=== PATIENT | male | born 1985 | race Caucasian/White ===

== ENCOUNTER 2020-08-31 11:38 | Outpatient (REF) | payer SELFPAY | END 2020-08-31 11:39 | disposition home or self-care (01) | LOC: HO.BBR 11:38 | PROVIDERS: Visit Provider Internal Medicine Hematology & Oncology | DX: Z13.89 Encounter for screening for other disorder (principal) ==

== ENCOUNTER 2020-09-13 11:57 | Outpatient (REF) | payer SELFPAY | END 2020-09-13 11:58 | disposition home or self-care (01) | LOC: HO.BBR 11:57 | PROVIDERS: Visit Provider Internal Medicine Hematology & Oncology | DX: Z13.89 Encounter for screening for other disorder (principal) ==

== ENCOUNTER 2020-12-06 13:45 | Outpatient (REF) | payer SELFPAY | END 2020-12-06 13:46 | disposition home or self-care (01) | LOC: HO.BBR 13:45 | PROVIDERS: Visit Provider Internal Medicine Hematology & Oncology | DX: Z13.89 Encounter for screening for other disorder (principal) ==

== ENCOUNTER 2022-07-23 13:58 | Outpatient (REF) | payer OTHER, SELFPAY | END 2022-07-23 13:59 | disposition home or self-care (01) | LOC: HO.BBR 13:58 | PROVIDERS: Visit Provider Hospitalist | DX: Z13.89 Encounter for screening for other disorder (principal) ==

== ENCOUNTER 2022-10-30 09:42 | Outpatient (REF) | payer OTHER, SELFPAY | END 2022-10-30 09:43 | disposition home or self-care (01) | LOC: HO.BBR 09:42 | PROVIDERS: Visit Provider Hospitalist | DX: Z13.89 Encounter for screening for other disorder (principal) ==

== ENCOUNTER 2023-01-28 07:55 | Outpatient (REF) | payer OTHER, SELFPAY | END 2023-01-28 07:56 | disposition home or self-care (01) | LOC: HO.BBR 07:55 | PROVIDERS: Visit Provider Hospitalist | DX: Z13.89 Encounter for screening for other disorder (principal) ==

== ENCOUNTER 2023-04-30 09:57 | Outpatient (REF) | payer OTHER, SELFPAY | END 2023-04-30 09:58 | disposition home or self-care (01) | LOC: HO.BBR 09:57 | PROVIDERS: Visit Provider Hospitalist | DX: Z13.89 Encounter for screening for other disorder (principal) ==

== ENCOUNTER 2023-08-02 13:41 | Outpatient (REF) | payer OTHER, SELFPAY | END 2023-08-02 13:42 | disposition home or self-care (01) | LOC: HO.BBR 13:41 | PROVIDERS: Visit Provider Hospitalist | DX: Z13.89 Encounter for screening for other disorder (principal) ==

== ENCOUNTER 2023-10-29 13:57 | Outpatient (REF) | payer OTHER, SELFPAY | END 2023-10-29 13:58 | disposition home or self-care (01) | LOC: HO.BBR 13:57 | PROVIDERS: Visit Provider Hospitalist | DX: Z13.89 Encounter for screening for other disorder (principal) ==

== ENCOUNTER 2024-01-27 14:12 | Outpatient (REF) | payer OTHER, SELFPAY | END 2024-01-27 14:13 | disposition home or self-care (01) | LOC: HO.BBR 14:12 | PROVIDERS: Visit Provider Hospitalist | DX: Z13.89 Encounter for screening for other disorder (principal) ==

== ENCOUNTER 2024-08-04 08:07 | Outpatient (REF) | payer OTHER, SELFPAY | END 2024-08-04 08:08 | disposition home or self-care (01) | LOC: HO.BBR 08:07 | PROVIDERS: Visit Provider Hospitalist | DX: Z13.89 Encounter for screening for other disorder (principal) ==

== ENCOUNTER 2025-02-01 08:02 | Outpatient (REF) | payer BC, SELFPAY ==
--- OUTSIDE RECORDS SUMMARY | 2025-02-01 08:05 | XMS_ITS ---
Author Name [facility] Organization Unknown History of Medication Use Medication Directions Dispensed Refills Start Date End Date Stat us atorvastatin (LIPITOR) 40 MG tablet every evening. 10/24/2022 active aspirin enteric coated (ECOTRIN LOW STRENGTH) 81 MG EC tablet Take 1 tablet (81 mg total) by mouth daily. active Encounters Encounter Type Encounter Reason Primary Diagnosis Location Date Ambulatory Phimosis [facility] 12/19/2022 Ambulatory Encounter for ot her preprocedural examination [facility] 12/13/2022 Ambulatory Encounter for ot her general counseling and advice on contraception [facility] 11/20/2022 Care Team Organization Name Specialty Phone Email Start Date End [place] [facility] Primary [facility] 12/19/2022 12/19/2022 [facility] NO PCP Primary Care 11/20/2022 11/20/2022 [facility] P[facility],No Primary Care 11/20/2022
--- OUTSIDE RECORDS SUMMARY | 2025-02-01 08:05 | XMS_ITS | Clinical Summary ---
Author Organization [facility] Address [address] [place] [address] Care Team Providers Care Group Fitness Instructor Name Role Phone Jazmyne Hutson DO Primary Care Pro vider Allergies No known active allergies Medications atorvastatin (LIPITOR) 40 MG tablet Take 1 tablet (40 mg total) by mouth every morning. 10/24/2022 Active metoPROLOL SUCCINATE (TOPROL-XL) 100 MG 24 hr tablet Take 1 tablet (100 mg total) by mouth daily. 10/24/2022 Active aspirin enteric coated (ECOTRIN LOW STRENGTH) 81 MG EC tablet Take 1 tablet (81 mg total) by mouth daily. Active Active Problems No known active problems Family History Medical History Relation Name Comments No Known Problems Father No Known Problems Mother Relation Name Status Comments Father Alive Mother Alive Social History Tobacco Use Types Packs/Day Years Used Date Smoking Tobacco: Never Smokeless Tobacco: Never Tobacco Cessation:Counseling Given: Not Answered Alcohol Use Standard Drinks/Week Comments Yes 7 (1 standard drink = 0.6 oz pur e alcohol) AUDIT-C Answer Date Recorded Q1: How often do you have a drink containing alcohol? 4 or more times a week 11/23/2022 Q2: How many drinks containi ng alcohol do you have on a typical day when you are drinking? 1 or 2 Q3: How often do you have si x or more drinks on one occasion? Monthly 11/23/2022 Sex and Gender Information Value Date Recorded Sex Assigned at Male 11/21/2022 9:04 AM EST Legal Sex Male 10:48 AM EDT Gender Identity Male 11/21/2022 9:04 AM EST Sexual Orientation Heterosexual (straight) 11/21 9:04 AM EST Last Filed Vital Signs Vital Sign Reading Time Taken Comments Blood Pressure 135/70 12/19/2022 9:15 AM EDT Pulse 70 12/19/2022 9:15 AM EDT Temperature 36 ??C (96.8 ??F) 12/19/2022 9:15 AM EDT Respiratory Rate 12 12/19/2022 9:15 AM EDT Oxygen Saturation 98% 12/19/2022 9:15 AM EDT Inhaled Oxygen Concentration - - Weight 106 kg (233 lb 8 oz) 12/13/2022 11:04 AM EDT Height 177.8 cm (5' 10 ) 12/13/2022 11:04 AM EDT Body Mass Index 33.5 12/13/2022 11:04 AM EDT Plan of Treatment Health Maintenance Due Date Last Done Comments Hepatitis C Virus Screening 1985 HIV Screening 1998 DTaP/Tdap/Td Vaccines (1 - Tdap) 2004 Hepatitis B Vaccines (1 of 3 - 19+ 3-dose series) 2004 COVID-19 Vaccine (2023-2 5 season) 2024 01/23/2021, 01/02/2021 Influenza Vaccine 04/16/2025 06/12/2018 HPV Vaccines Aged Out No longer eligi ble based on patient's age to complete this topic Pneumococcal Vaccine: Pediatric (0-5 Years) and At-Risk Patients (6 to 49 Years) Aged Out No longer eligible b ased on patient's age to complete this topic Insurance Advance Directives * Full Code (Latest Code Status on File) Date Activated Date Inactivated Comments 12/19/2022 7:11 AM Care Teams Group Fitness Instructor Relationship Specialty Start Date End Date Jazmyne Hutson DO [address] [place] [address] PCP - General Internal Medicine 12/19/22
--- OUTSIDE RECORDS SUMMARY | 2025-02-01 08:05 | XMS_ITS | Clinical Summary ---
Author Organization Patient Business Ser [facility] Address [address] [place] [address] Care Team Providers Care Homebound Teacher Name Role Phone Emily Mora NP Primary Care Provider [phone] Allergies No known active allergies Medications aspirin 81 mg chewable tablet 81 mg daily. 11/04/2018 Active atorvastatin (LIPITOR) 40 mg tablet Take 1 tablet (40 mg total) by mouth 1 (one) time each day. 90 tablet 1 07/29/2024 Active metoprolol succinate (TOPROL-XL) 100 mg 24 hr tablet TAKE 1 TABLET BY MOUTH EVERY DAY 90 tablet 1 11/18/2024 Active Active Problems Problem Noted Date Diagnosed Date Hereditary hemochromatosis (CMS/HCC V24) 025 Abnormal echocardiogram 06/05/2024 Overview (07/24/2024): Last Assessment & Plan: Patient's last echocardiogram was done in September 2022 showing an EF of 45 to 50% with grade 1 diastolic dysfunction. In comparison to his last echo the EF appears to be lower however Definity was used on the study and was on the last, wall motion abnormality remained the same. Will update an echo to identify if the patient does have a reduced reduction in his ejection fraction. Heart attack (CMS/HCC V24, CMS/HCC V28) 09/11/20 Paroxysmal atrial tachycardia (CMS/HCC V24) 08/17 Pure hypercholesterolemia 09/11/2022 Hyperlipidemia 02/17/2021 Overview (07/24/2024): Last Assessment & Plan: Last lipid panel was completed January 2023 showing an LDL of 69 which is within his goal of LDL less than 70. Will update a lipid panel to ensure he is still within goal. Continue on atorvastatin daily. PVC's (premature ventricular contractions) 02/17 Overview (07/24/2024): Last Assessment & Plan: His EKG does show a PVC. He does not have any further PVCs on examination. We will be updating his echocardiogram and this will tell us if there is any structural abnormalities related to this. He is unaware of any PVCs. He cannot feel any palpitations. Essential hypertension 02/17/2021 Overview (07/24/2024): Last Assessment & Plan: Patient's blood pressure is well-controlled with a reading of 118/78, continue with metoprolol XL [address] elevation myocardia l infarction (STEMI) due to occlusion of circumflex coronary artery (CMS/HCC V24, CMS/HCC V28) 02/17/2021 Coronary artery disease invo lving [place] coronary artery of [place] heart without angina pectoris 02/17/2021 Overview (07/24/2024): Last Assessment & Plan: Has history of STEMI with stenting of his left circumflex artery in 2019. He has been doing well since, no exertional symptoms. He continues on cardioprotective medications with a statin, beta-say and aspirin daily. Blood pressure is well-controlled, he is active and following a low-fat diet. He is aware to notify the office if he develops any new symptoms. History of ST elevation myocardial infarction (S ALYSSA) 10/23/2018 Encounters Date Type Department Care Team Description 12/01/2024 4:00 PM EDT Office Visit [facility] [address] [place] [address] Emily Mora NP Adult general medical examination (Primary Dx); Essential hypertension; Coronary artery disease involving [place] coronary artery of [place] heart without angina pectoris; Hereditary hemochromatosis (CMS/HCC V24); Screening for deficiency anemia; Screening for metabolic disorder; Encounter for lipid screening for cardiovascular disease from Last 3 Months Surgical History Surgery Date Site/Laterality Comments HAND SURGERY Right PROCEDURE: [place] UNLISTED PROCEDURE HANDS/FINGERS; COMMENT: pin placed in Thumb age 12 CARDIAC CATHETERIZATION 10/23/2017 PROCEDURE: HISTORICAL CARDIAC CATH ANKLE SURGERY 10/2020 PROCEDURE: HISTORICAL ANKLE SURGERY; COMMENT: Broken ankle w/ plate/screws VASECTOMY 09/16/2023 - 09/15/2024 Medical History Medical History Date Comments Hemochromatosis 03/2004 DX:Hemochromatos is Metacarpal bone fracture DX:[place] carpal bone fracture Skin lesion of face 09/11/2022 DX:Skin lesi on of face Macrocytosis without anemia DX:M acrocytosis without anemia Family History Medical History Relation Name Comments Prostate cancer Paternal Grandfather Skin cancer Paternal Grandmother Relation Name Status Comments Paternal Grandfather Paternal Grandmother Social History Tobacco Use Types Packs/Day Years Used Date Smoking Tobacco: Never Smokeless Tobacco: Never Alcohol Use Standard Drinks/Week Comments Yes 10 (1 standard drink = 0.6 oz pu re alcohol) Housing Instability Answer Date Recorde d Are you worried that in the next 2 months you may not have stable housing? No 12/01/2024 Food Access & Nutrition Answer Date Rec orded Do you have access to a vari ety of food including fruits and vegetables? Yes 12/01/2024 Access to Healthcare Answer Date Record ed Within the last 3 months, ho w many times did you visit the emergency department for your medical care? 0 12/01/2024 Health Literacy Answer Date Recorded How often do you need to hav e someone help you when you read instructions, pamphlets, or other written material from your doctor or pharmacy? Never 12/01/2024 Caregiver: How often do you need to have someone help you when you read instructions, pamphlets, or other written material from your doctor or pharmacy? Not on file 12/01/2024 Financial Risk Answer Date Recorded How hard is it for you to pa y for the very basics like food, housing, medical care, and air conditioning / heating? Not very hard 12/01/2024 Transportation Answer Date Recorded Has the lack of transportati on kept you from meetings, work, or from getting things needed for daily living? No Has the lack of transportati on kept you from medical appointments or from getting medications? No 12/01/2024 Social Isolation Answer Date Recorded How often do you feel lonely or isolated from th ose around you? Never 12/01/2024 Food Risk Answer Date Recorded Within the past 12 months we worried whether our food would run out before we got money to buy more. Never true 12/01/2024 Within the past 12 months th e food we bought just didn't last and we didn't have money to get more. Never true 12/01/2024 Dependent Care Answer Date Recorded Do you need help finding or paying for care for your loved ones. For example, director maternal child or elderly care for an older adult? No 12/01/2024 Education Answer Date Recorded Do you think completing more education or training, like finishing a GED, going to college, or learning a trade, would be helpful for you? N/A 12/01/2024 Employment and Income Answer Date Recor ded During the last four weeks, have you been actively looking for work? No 12/01/2024 Living Situation Answer Date Recorded What is your living situation? 0 12/01/2024 Sex and Gender Information Value Date Recorded Sex Assigned at Not on file Legal Sex Male 12:28 PM EDT Gender Identity Not on file Sexual Orientation Not on file Obstetrics History Last Filed Vital Signs Vital Sign Reading Time Taken Comments Blood Pressure 110/72 12/01/2024 4:07 PM EDT Pulse 64 12/01/2024 3:56 PM EDT Temperature - - Respiratory Rate - - Oxygen Saturation - - Inhaled Oxygen Concentration - - Weight 104 kg (229 lb 9.6 oz) 12/01/2024 3:56 PM EDT Height 175.3 cm (5' 9 ) 12/01/2024 3:56 PM EDT Body Mass Index 33.91 12/01/2024 3:56 PM EDT Plan of Treatment Upcoming Encounters Date Type Department Care Team (Late st Contact Info) Description 12/07/2025 9:00 AM EDT Office Visit [facility] [address] [facility] [place] [place] [address] Emily Mora NP [address] [facility] [place] [address] Health Maintenance Due Date Last Done Comments DTaP,Tdap,and Td Vaccines (1 - Tdap) 12/01/2025 Postponed from 2004 (Patient Refused) Depression Screening 12/01/2025 12/01/2024 Hypertension/CHF/CAD Annual BMP Blood Test 12/01/2025 12/01/2024, 12/13/2022, 12/13/2022 Social Influencers of Health Screening 12/01/2025 12/01/2024 Cholesterol Screening (Lipid Panel) 12/01/2029 12/01/2024 COVID-19 Vaccine Discontinued 09/20/2021 HIB Vaccines Aged Out No longer eligi ble based on patient's age to complete this topic HIV Screening Discontinued HPV Vaccines Aged Out No longer eligi ble based on patient's age to complete this topic Hepatitis A Vaccines Aged Out No long er eligible based on patient's age to complete this topic Hepatitis B Vaccines Discontinued Hepatitis C Screening Discontinued IPV Vaccines Aged Out No longer eligi ble based on patient's age to complete this topic Influenza Vaccine Discontinued MMR Vaccines Aged Out No longer eligi ble based on patient's age to complete this topic Meningococcal ACWY Vaccine Aged Out N o longer eligible based on patient's age to complete this topic Meningococcal B Vaccine Aged Out No l onger eligible based on patient's age to complete this topic Pneumococcal Vaccine: Pediatrics (0 to 5 Years) and At-Risk Patients (6 to 64 Years) Aged Out No longer eligible b ased on patient's age to complete this topic RSV Immunization Patients Under 20 months Aged Out No longer eligible b ased on patient's age to complete this topic Varicella Vaccines Aged Out No longer eligible based on patient's age to complete this topic Procedures Procedure Name Priority Date/Time Associated Diagnosis Comments COMPLETE BLOOD COUNT Routine 12/01/2024 4:40 PM EDT Screening for deficiency anemia COMPREHENSIVE METABOLIC PANEL Routine 12/01/2024 4:40 PM EDT Screening for metabolic disorder LIPID PANEL WITH REFLEX TO DIRECT LDL Routine 12/01/2024 4:40 PM EDT Screening for metabolic disorder Encounter for lipid screening for cardiovascular disease IRON AND TIBC Routine 12/01/2024 4:40 PM EDT Hereditary hemochromatosis (CMS/HCC V24) FERRITIN Routine 12/01/2024 4:40 PM EDT Hereditary hemochromatosis (CMS/HCC V24) from Last 3 Months Results * (ABNORMAL) Lipid panel with reflex to direct LDL (12/01/2024 4:40 PM EDT) Cholesterol 164 0 - 200 mg/dL LAB CHEMISTRY METHOD 12/01/2024 6:55 PM EDT [facility] Triglycerides 223(H) 0 - 150 mg/dL LAB CHEMISTRY METHOD 12/01/2024 6:55 PM EDT [facility] HDL 47 >=40 mg/dL LAB CHEMISTRY METHOD 12/01/2024 6:55 PM EDT [facility] LDL Calculated 72 0 - 100 mg/dL LAB CHEMISTRY METHOD 12/01/2024 6:55 PM EDT [facility] VLDL Cholesterol Maximilian 44.6 mg/dL LAB CHEMISTRY METHOD 12/01/2024 6:55 PM EDT [facility] Non HDL Chol. (LDL+VLDL) 117 <145 mg/dL LAB CHEMISTRY METHOD 12/01/2024 6:55 PM EDT [facility] Chol/HDL Ratio 3.5 0.0 - 4.4 LAB CHEMISTRY METHOD 12/01/2024 6:55 PM EDT [facility] Blood Venous blood specimen / Unknown Venipuncture / Unknown 12/01/2024 4:40 PM EDT 12/01/2024 4:40 PM EDT us Emily oMra NP LAB BLOOD ORDERABLES Final Resu lt [facility] [address] [place] [address], * (ABNORMAL) Iron and TIBC (12/01/2024 4:40 PM EDT) Iron 177(H) 50 - 160 mcg/dL LAB CHEMISTRY METHOD 12/01/2024 6:55 PM EDT [facility] TIBC 290 250 - 450 mcg/dL LAB CHEMISTRY METHOD 12/01/2024 6:55 PM EDT [facility] Iron Saturation 61(H) 20 - 50 % LAB CHEMISTRY METHOD 12/01/2024 6:55 PM EDT [facility] Blood Venous blood specimen / Unknown Venipuncture / Unknown 12/01/2024 4:40 PM EDT 12/01/2024 4:40 PM EDT Emily Mora NP LAB BLOOD ORDERABLES Final Resu lt [facility] [address] [place] [address], * (ABNORMAL) Complete blood count (12/01/2024 4:40 PM EDT) [facility] WBC 8.3 4.8 - 10.8 K/mcL LAB HEMETOLOGY METHOD 12/01/2024 6:29 PM EDT [facility] RBC 4.90 4.50 - 5.50 M/mcL LAB HEMETOLOGY METHOD 12/01/2024 6:29 PM EDT [facility] Hemoglobin 16.3 13.5 - 17.5 g/dL LAB HEMETOLOGY METHOD 12/01/2024 6:29 PM EDT [facility] Hematocrit 47.6 42.0 - 54.0 % LAB HEMETOLOGY METHOD 12/01/2024 6:29 PM EDT [facility] MCV 97.3 79.0 - 98.0 FL LAB HEMETOLOGY METHOD 12/01/2024 6:29 PM EDT [facility] MCH 33.3(H) 27.0 - 32.0 pcg LAB HEMETOLOGY METHOD 12/01/2024 6:29 PM EDT [facility] MCHC 34.2 32.0 - 37.0 g/dL LAB HEMETOLOGY METHOD 12/01/2024 6:29 PM EDT [facility] RDW 11.9 11.0 - 15.0 % LAB HEMETOLOGY METHOD 12/01/2024 6:29 PM EDT [facility] Platelets 259 130 - 400 K/mcL LAB HEMETOLOGY METHOD 12/01/2024 6:29 PM EDT [facility] MPV 10.3 7.0 - 11.0 FL LAB HEMETOLOGY METHOD 12/01/2024 6:29 PM EDT [facility] NRBC 0.0 <1.0 % LAB HEMETOLOGY METHOD 12/01/2024 6:29 PM EDT [facility] NRBC Absolute 0.00 <0.10 K/mcL LAB HEMETOLOGY METHOD 12/01/2024 6:29 PM EDT [facility] Blood Venous blood specimen / Unknown Venipuncture / Unknown 12/01/2024 4:40 PM EDT 12/01/2024 4:40 PM EDT us Emily Mora HOTEL GUEST SERVICE AGENT LAB BLOOD ORDERABLES Final Resu lt [facility] [address] [place] [address], * Ferritin (12/01/2024 4:40 PM EDT) Ferritin 67 26 - 388 ng/mL LAB CHEMISTRY METHOD 12/01/2024 6:55 PM EDT [facility] Blood Venous blood specimen / Unknown Venipuncture / Unknown 12/01/2024 4:40 PM EDT 12/01/2024 4:40 PM EDT us Emily Mora NP LAB BLOOD ORDERABLES Final Resu lt [facility] [address] [place] [address], * (ABNORMAL) Comprehensive metabolic panel (12/01/2024 4:40 PM EDT) Sodium 137 133 - 145 mmol/L LAB CHEMISTRY METHOD 12/01/2024 6:55 PM EDT [facility] Potassium 4.1 3.5 - 5.5 mmol/L LAB CHEMISTRY METHOD 12/01/2024 6:55 PM T [facility] Chloride 102 96 - 110 mmol/L LAB CHEMISTRY METHOD 12/01/2024 6:55 PM [facility] CO2 26 21 - 32 mmol/L LAB CHEMISTRY METHOD 12/01/2024 6:55 PM [facility] Anion Gap 9 3 - 11 LAB CHEMISTRY METHOD 12/01/2024 6:55 PM [facility] Glucose 99 70 - 100 mg/dL LAB CHEMISTRY METHOD 12/01/2024 6:55 PM [facility] BUN 17 5 - 25 mg/dL LAB CHEMISTRY METHOD 12/01/2024 6:55 PM [facility] Creatinine 1.09 0.70 - 1.30 mg/dL LAB CHEMISTRY METHOD 12/01/2024 6:55 PM EDT [facility] eGFR 89 >=60 mL/min/1. 73m2 LAB CHEMISTRY METHOD 12/01/2024 6:55 PM [facility] Comment:Calculation based on the??Chronic Kidney Disease Epidemiology Collaboration (CKD-EPI) equation refit??without adjustment for race. BUN/Creatinine Ratio 15.6 LAB CHEMISTRY METHOD 12/01/2024 6:55 PM [facility] Calcium 9.5 8.5 - 10.5 mg/dL LAB CHEMISTRY METHOD 12/01/2024 6:55 PM EDT [facility] AST (SGOT) 38 10 - 42 unit/L LAB CHEMISTRY METHOD 12/01/2024 6:55 PM EDT [facility] ALT (SGPT) 83(H) 10 - 60 unit/L LAB CHEMISTRY METHOD 12/01/2024 6:55 PM EDT [facility] Alkaline Phosphatase 98 42 - 121 unit/L LAB CHEMISTRY METHOD 12/01/2024 6:55 PM EDT [facility] Total Protein 7.4 6.0 - 8.0 g/dL LAB CHEMISTRY METHOD 12/01/2024 6:55 PM EDT [facility] Albumin 3.9 3.2 - 5.0 g/dL LAB CHEMISTRY METHOD 12/01/2024 6:55 PM EDT [facility] Total Bilirubin 0.8 0.0 - 1.4 mg/dL LAB CHEMISTRY METHOD 12/01/2024 6:55 PM EDT [facility] Blood Venous blood specimen / Unknown Venipuncture / Unknown 12/01/2024 4:40 PM EDT 12/01/2024 4:40 PM EDT us Emily Mora HOTEL GUEST SERVICE AGENT LAB BLOOD ORDERABLES Final Resu lt [facility] [address] [place] [address], from Last 3 Months Insurance [facility] Care Teams Homebound Teacher Relationship Specialty Start Date End Date Emily Mora NP [address] [facility] [place] [address] PCP - General 04/06/24
--- OUTSIDE RECORDS SUMMARY | 2025-02-01 08:05 | XMS_ITS | Encounter Summary ---
Author Organization [facility] Address [address] [place] [address] Care Team Providers Care Metal Solderer Name Role Phone Pcp, No Primary Care Provider Jazmyne Sanchez DO Primary Care Pro vider Reason for Visit * Reason Comments Appointment Encounter Details Date Type Department Care Team (Late st Contact Info) Description 12/18/2022 Telephone [facility] Urologic Surgery [address] [address] Ariel Funes MD [address] [place] [id number] Appointment Social History Tobacco Use Types Packs/Day Years Used Date Smoking Tobacco: Never Smokeless Tobacco: Never Alcohol Use Standard Drinks/Week Comments Yes 7 [...] Orientation Heterosexual (straight) 11/21 9:04 AM EST COVID-19 Exposure Response Date Recorded In the last 10 days, have yo u been in contact with someone who was confirmed or suspected to have Coronavirus/COVID-19? 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 Put him on hold and spoke with Marcelino Khalil to ask if there was anything missing for clearance tomorrow. Marcelino states that the pre-op testing facility cleared him and that he doesn't need cardiac clearance at his age. Advised that he has had an MD in the past and does need clearance per pre-op testing's note. Transferred the patient to speak withDelbertan. TRAVIS updated. Brittany Farias LPN 12/18/2022 2:52 PM * Telephone Encounter - Brittany Farias LPN - 12/18/2022 2:17 PM EDT Spoke with patient- he states that he did not call and does not know who Monica is. He states thathe is walking into his guest relations manager's office now and will call us if needed after his appt. Brittany Farias LPN 12/18/2022 2:18 PM * Telephone Encounter - Brittany Farias LPN - 12/18/2022 1:58 PM EDT Lmtcb for patient. Called the number listed for [facility] which was not in service. His emergency contact is listed as Kristine. Brittany Farias LPN 12/18/2022 1:59 PM documented in this encounter Plan of Treatment Not on file documented as of this encounter Visit Diagnoses Not on filedocumented in this encounter Care Teams Metal Solderer Relationship Specialty Start Date End Date Pcp, No [address] [place] [address] PCP - General 09/26/22 12/18/22 Jazmyne Hutson DO [address] [place] [id number] PCP - General Internal Medicine 12/19/22 documented as of this encounter
== END 2025-02-01 08:03 | disposition home or self-care (01) ==
LOC: HO.BBR 08:02
PROVIDERS: PCP Nurse Practitioner Primary Care; Visit Provider Hospitalist
DX: Z13.89 Encounter for screening for other disorder (principal)